=== PATIENT | female | born 1980 | race Caucasian/White ===

== ENCOUNTER 2017-06-28 11:04 | Emergency (ER) | payer OTHER ==
[2017-06-28 11:29] VITALS: BP 104/65
--- NOTE | 2017-06-28 11:54 | UC ---
Upper Extremity HPI - HPI Summary HPI Summary: Left shoulder pain starting this morning. No recent trauma. She has been doing a lot of cleaning lately and has been moving things around. No prior shoulder disease. She has had carpal tunnel but this is different. No overt neck pain. - History of Current Complaint Chief Complaint: UCUpperExtremity Stated Complaint: LEFT SHOULDER MUSCLE COMP Time Seen by Provider: 06/28/17 11:30 Hx Obtained From: Patient Hx Last Menstrual Period: does not get ?: No Onset/Duration: Other - She awoke with this pain. Severity Initially: Moderate Severity Currently: Moderate Pain Intensity: 7 Location Of Pain: Is Discrete @, Radiates To - arm and hand. Character: Dull, Aching Aggravating Factor(s): Movement, Lifting, Flexion, Extension, Abduction, Adduction Alleviating Factor(s): Nothing Associated Signs And Symptoms: Positive: Negative. Negative: Swelling, Redness , Bruising, Fever, Weakness, Numbness/Tingling - Allergies/Home Medications Allergies/Adverse Reactions: Allergies Allergy/AdvReac Type Severity Reaction Status Date / Time enviromental Allergy Mild Congestion Uncoded 06/28/17 11:23 Home Medications: Home Medications Diclofenac 1% GEL (NF) [Voltaren 1% GEL (NF)] 1 applic TOPICAL QID 06/28/17 [ History Confirmed 06/28/17] Dicyclomine CAP* [Bentyl CAP*] 10 mg PO TID PRN 06/28/17 [History Confirmed 11/07] Gabapentin CAP(*) [Neurontin 400 mg CAP(*)] 400 mg PO TID 06/28/17 [History Confirmed 06/28/17] Meloxicam [Mobic] 15 mg PO DAILY 06/28/17 [History Confirmed 06/28/17] PMH/Surg Hx/FS Hx/Imm Hx Previously Healthy: No - Surgical History Surgical History: Yes Surgery Procedure, Year, and Place: [facility] - 07/2011. knee and hand surgery , tubal ligation 2005. ablation - Family History Known Family History: Positive: None Family History: no reported cardio vascular issues in family lineage - Social History Occupation: Disabled Alcohol Use: None Substance Use Type: None Smoking Status (MU): Heavy Every Day Tobacco Smoker Type: Cigarettes Amount Used/How Often: 1 PK DAILY Length of Time of Smoking/Using Tobacco: since age 22 Have You Smoked in the Last Year: Yes Review of Systems Musculoskeletal: Arthralgia All Other Systems Reviewed And Are Negative: Yes Physical Exam Triage Information Reviewed: Yes Appearance: Well-Appearing - No obvious pain until she uses the arm., No Pain Distress, Well-Nourished Vital Signs: Initial Vital Signs Temp 98.7 F 06/28/17 11:22 Pulse 96 06/28/17 11:22 Resp 18 06/28/17 11:22 BP 104/65 06/28/17 11:22 Pulse Ox 98 06/28/17 11:22 Vital Signs Reviewed: Yes Eyes: Positive: Conjunctiva Clear ENT Exam: Normal ENT: Positive: Normal ENT inspection Neck: Positive: Supple, Nontender, No Lymphadenopathy. Negative: Nuchal Rigidity Respiratory: Positive: Normal breath sounds, No respiratory distress, No accessory muscle use. Negative: Respiratory distress, Decreased breath sounds, Accessory muscle use, Crackles, Rhonchi, Stridor Cardiovascular: Positive: No Murmur, Pulses Normal Abdomen Description: Positive: Nontender, No Organomegaly, Soft, Distended, Guarding. Negative: CVA Tenderness (R), CVA Tenderness (L) Musculoskeletal Exam: Other - No midline neck tenderness. neg spurling. There is diffuse shoulder tenderness. There is pain in left shoulder with abduction and external rotation and empty can. Neurological: Positive: Alert, Muscle Tone Normal. Negative: Fatigued Psychological: Positive: Age Appropriate Behavior Skin: Negative: rashes Upper Extremity Course/Dx - Course Course Of Treatment: Atraumatic shoulder pain. No outright signs of radiculpathy or having origen from the c spine. We will start with PT. Atruamtic. May be related to more work around the should which she did last week. - Differential Dx/Diagnosis Provider Diagnoses: left shoulder pain. Discharge - Sign-Out/Discharge Documenting (check all that apply): Discharge/Admit/Transfer - Discharge Plan Condition: Good Disposition: HOME Patient Education Materials: Shoulder Pain (ED) Referrals: María Elena Oates MD [Primary Care Provider] - Antony Remy MD [Medical Doctor] - If Needed - Billing Disposition and Condition Condition: GOOD Disposition: HOME
== END 2017-06-28 11:57 | disposition home or self-care (01) ==
LOC: UCCORT 11:04
DX: M25.512 Pain in left shoulder (principal)
CPT/HCPCS: 99211; G0463

== ENCOUNTER 2017-12-14 08:03 | Day surgery (SDC) | payer OTHER ==
[~2017-12-14 08:03] MED LIST: Buffered Lidocaine 0.9% SYRIN* 5 ML/SYR SYRINGE INTRADERM ONE; Sodium Citrate/Citric Acid* 15 ML UDC ONE; Sodium Citrate/Citric Acid* 15 ML UDC PO ONE
[2017-12-14] MEDS ORDERED: ceFAZolin 2 GM PREMIX in ORs 2 GM/50 ML BAG IVPB ONE (08:10)
[2017-12-14] MEDS ORDERED: Midazolam* 1 MG/ML 2 ML VIAL (2 MG) ONE (09:10)
[2017-12-14] MEDS ORDERED: fentaNYL* 50 MCG/ML 2 ML VIAL (100 MCG VIAL) ONE (09:10)
[2017-12-14] MEDS ORDERED: Propofol* 10 MG/ML 20 ML BTL IV PUSH ONE (09:11)
[2017-12-14] MEDS ORDERED: Lidocaine 2% PF * 5 ML VIAL ONE (09:11)
[2017-12-14] MEDS ORDERED: ROPIVACAINE 5 MG/ML 30 ML BTL (0.5%) ONE (09:18)
[2017-12-14] MEDS ORDERED: Ketorolac INJ* 30 MG/ML 1 ML VIAL IV PRN (10:24)
[2017-12-14] MEDS ORDERED: Ondansetron INJ* 2 MG/ML VIAL IV PRN (10:24)
[2017-12-14] MEDS ORDERED: Naloxone* 0.4 MG/ML 1 ML VIAL IV PRN (10:24)
[2017-12-14] MEDS ORDERED: fentaNYL* 50 MCG/ML 2 ML VIAL (100 MCG VIAL) IV PRN (10:24)
[2017-12-14] MEDS ORDERED: HYDROcodone/ACETAMIN 5-325 MG* 1 TAB ONE (11:58)
[2017-12-14] MEDS ORDERED: Ketorolac INJ* 30 MG/ML 1 ML VIAL ONE (11:58)
[2017-12-14 12:23] VITALS: BP 98/66
--- NOTE | 2017-12-14 23:59 | OP ---
DATE OF OPERATION: 12/14/17 - [facility] DATE OF : 84 SURGEON: Librado Townsend MD RELAY TESTER: FELIX [place]. An digital marketing assistant was needed for the entirety of the procedure to aid in positioning of the arm and retraction and passing off the arthroscopic instruments. ANESTHESIOLOGIST: Dr. Cross. ANESTHESIA: General. 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 OPERATIVE PROCEDURE: 1. Left wrist arthroscopic TFCC debridement as well as ulnar carpal ligament debridement. 2. Left open triangular fibrocartilage complex repair. 3. Left pisiform excision. INDICATIONS: Lexii is 37 years old. She has had ulnar-sided wrist pain for quite sometime, it is not getting better. I had reviewed her MR arthrogram and I thought that she had a peripheral TFCC tear as well as potential pisotriquetral joint instability. We had talked about risks and benefits. She had wanted to proceed with surgery. ESTIMATED BLOOD LOSS: 2 mL. COMPLICATIONS: None. FINDINGS: See above and below. DESCRIPTION OF PROCEDURE: Lexii was seen in the preoperative holding area. The correct side, site, and procedure were identified. We came back to the operating room. The arm was prepped and draped in the usual fashion. A time- out was performed. The arm was exsanguinated with the Esmarch and the tourniquet inflated to 250 mmHg. The arm had been placed in the Acumed traction tower and nice traction applied. I began by creating a 3/4 portal with the 11 blade followed by the mosquito followed by the trocar. The camera was introduced into the portal. The radial side of the structures all looked good. Ulnarly, there was a bit of delamination of the palmar radial ulnar ligament. Dorsally, everything looked good. There did appear to be little bit more laxity in the TFCC than I would anticipate. There was also some fraying and degeneration and some longitudinal splitting of the ulnocarpal ligaments. I went ahead and brought in my shaver and debrided back the loose edges of the TFCC into the ulnocarpal ligaments. I then brought in the radiofrequency ablation and cauterized the ulnocarpal ligament so as to stabilize them and induce healing. I went ahead and also cauterized the delaminated portion of the palmar radial ulnar ligament, so everything was a nice stable edge. I also performed a dorsal synovectomy with the shaver. At this point, everything was looking good. I did not see anything more that I could do with the arthroscopic equipment. There was no evidence for any scapholunate instability or lunotriquetral stability from the proximal, I therefore did not feel like a mid carpal portals were indicated. After the arm was put out of the traction tower and all the arthroscopic equipment had been handed off, I went ahead and made a Lee type incision over the pisiform bone, extended proximally in line with the FCU tendon. Dissection was carried down. Split thickness flaps were raised off the pisiform and the FCU tendon. The tendon was split longitudinally over the pisiform bone. The Emmett blade was then used to release the soft tissue around the periphery of the pisiform and this was excised in its entirety. Deep to this, it could be seen the ulnocarpal ligament had torn off of the triquetrum. I therefore roughened up the ulnar aspect of the triquetrum. I placed one mini Mitek suture anchor in standard fashion and then performed whipstitch into the ulnar carpal ligament and repaired this back down to the triquetrum. This was augmented with couple of 3-0 Ethibond sutures. Ultimately , the repair was very nice and everything was very tight. Lastly, I internally rotated the shoulder and made a longitudinal incision incorporating my 6R portal on the ulnar side of the wrist. Dissection was carried down and full thickness flaps were raised off the extensor retinaculum. The fifth dorsal compartment was opened and the EDM tendon was transposed. An arthrotomy was performed in the DRUJ. This was T'd back distal to the end of the ulna but proximal to the TFCC. I then made a second arthrotomy distal to the TFCC. The deep foveal fibers that I thought had been torn on the MRI were indeed torn off. This was creating some DRUJ instability. I went ahead and cleaned up the soft tissue at the fovea with the rongeur. Once I had some nice prepared area where there was some bleeding bone, I went ahead and placed a mini Mitek suture anchor in the fovea. I then sewed up a couple of times into the TFCC. I then held the ulna reduced and used my post suture to pull the TFCC down to the fovea and tied this off. This provided a very excellent and strong repair. This held the ulna in a very nice position. I then augmented my repair by imbricating the dorsal capsule and the capsule of the DRUJ as I closed the retinaculum. The EDM tendon was left transposed. The dorsal capsule was repaired back to the TFCC and everything was closed up very tightly with 3-0 Ethibond suture. At this point, we irrigated out the wounds. The dorsal wound was closed with 4-0 Monocryl suture. The portal sites were closed with Steri-Strips. The palmar wounds had been closed with 4-0 nylon suture already. The split in the FCU tendon had benign repaired with 4-0 Ethibond suture with the knots buried. 0.25% Marcaine was infiltrated all around the operative area. The wounds were dressed and a sugar tong splint was applied with the forearm in neutral rotation. Tourniquet was let down and the hand pinked up immediately. She was awoken up and taken to the recovery room in stable condition. [id number]/[facility] #: [id number] ANDREINA
== END 2017-12-14 12:25 | disposition home or self-care (01) ==
LOC: OREAST 08:03
PROVIDERS: ATTEND Orthopaedic Surgery Hand Surgery
DX: M24.232 Disorder of ligament, left wrist (principal); M25.332 Other instability, left wrist; Z95.0 Presence of cardiac pacemaker; Z72.0 Tobacco use; E03.9 Hypothyroidism, unspecified; M79.7 Fibromyalgia; F41.0 Panic disorder [episodic paroxysmal anxiety]
CPT/HCPCS: 88304; 88311; A9270-GY; C1713; J0690; J1885; J2250; J2704; J2795; J3010